=== PATIENT | male | born 2000 | race Caucasian/White ===

== ENCOUNTER 2020-07-08 09:58 | Emergency (ER) | payer OTHER ==
--- NOTE | 2020-07-08 12:13 | ED Physician Documentation ---
PD HPI SKIN - Stated complaint Stated Complaint: LUMP RT THIGH, HEAD PRESSURE - Chief complaint Chief Complaint: Wound - History obtained from History obtained from: Patient - Additional information Additional information: Patient comes emergency department with stool complaint of headache behind his eyes and infected pimple on his thigh. Patient states that for the last several days, he has as though he has "sinus pain" and that he has been noticing a dull ache behind his eyes. He denies congestion or rhinorrhea. States he has no history of chronic headaches. No head injury. Patient states he has been sleeping well and has been drinking plenty of fluids. Patient denies measured fevers but he has been having a feeling of shivering or chills on and off for the last couple of days. No cough, shortness of breath, or sore throat. No other complaints at this time regarding his headache. The patient states that he has had a pimple on his right inner thigh for the last few days and that it seems a little bigger now. He was concerned that the feeling of chills may be related to the pimple and would like them checked. He states his mom had something similar and was put on antibiotics and her chills went away. No drainage. No spreading erythema around the pimple. No other complaints at this time. Review of Systems Ten Systems: 10 systems reviewed and negative Constitutional: reports: Chills Eyes: reports: Reviewed and negative Ears: reports: Reviewed and negative Nose: reports: Sinus pressure / pain Throat: reports: Reviewed and negative Cardiac: reports: Reviewed and negative Respiratory: reports: Reviewed and negative GI: reports: Reviewed and negative : reports: Reviewed and negative Skin: reports: Lesions Musculoskeletal: reports: Reviewed and negative Neurologic: reports: Reviewed and negative Psychiatric: reports: Reviewed and negative Endocrine: reports: Reviewed and negative Immunocompromised: reports: Reviewed and negative PD PAST MEDICAL HISTORY - Past Medical History Past Medical History: No - Past Surgical History Past Surgical History: Yes HEENT: Myringotomy (tubes), Tonsil/Adenoidectomy - Present Medications Home Medications: Ambulatory Orders Medication Instructions Recorded Confirmed No Known Home Medications 07/08/20 07/08/20 - Allergies Allergies/Adverse Reactions: Allergies Allergy/AdvReac Type Severity Reaction Status Date / Time No Known Drug Allergies Allergy Verified 07/08/20 10:11 - Social History Does the pt smoke?: Yes Smoking Status: Current every day smoker Does the pt drink ETOH?: No Does the pt have substance abuse?: No - Immunizations Immunizations are current?: Yes PD ED PE NORMAL - Vitals Vital signs reviewed: Yes - General General: Alert and oriented X 3, No acute distress, Well developed/nourished - HEENT HEENT: Atraumatic, PERRL, EOMI, Moist mucous membranes, Other (No sinus tenderness) - Neck Neck: Supple, no meningeal sign - Respiratory Respiratory: No respiratory distress - Derm Derm: Normal color, Warm and dry, No rash, Other (5 mm x 7 mm pustule located the proximal portion patient's medial right thigh. No associated induration outside of the immediate pustule area drainage. No erythema spreading away from lesion.) - Extremities Extremities: No deformity - Neuro Neuro: Alert and oriented X 3 - Psych Psych: Normal mood, Normal affect Results - Vitals Vitals: Vital Signs - 24 hr /18/20 10:06 Temperature 36.8 C Heart Rate 70 Respiratory 17 Rate Blood Pressure 116/63 O2 Saturation 99 Oxygen O2 Source Room air PD MEDICAL DECISION MAKING - ED course Complexity details: considered differential, d/w patient ED course: No evidence of a bacterial infection in need of antibiotic treatment at this time. We have discussed hot-packing the pustule, and also, the usual indications for return. Departure - Departure Disposition: 01 Home, Self Care Clinical Impression: Pustule Headache Qualifiers: Headache type: unspecified Headache chronicity pattern: acute headache Intractability: not intractable Qualified Code(s): R51 - Headache Condition: Stable Instructions: ED Headache Sinus
[2020-07-08 12:31] VITALS: BP 115/54
== END 2020-07-08 13:24 | disposition home or self-care (01) ==
LOC: ED 09:58
DX: L08.9 Local infection of the skin and subcutaneous tissue, unspecified (principal); R51 Headache; F17.200 Nicotine dependence, unspecified, uncomplicated
CPT/HCPCS: 99281; 99284

== ENCOUNTER 2021-11-10 08:27 | Emergency (ER) | payer OTHER ==
[2021-11-10 08:40] VITALS: BP 133/60
[2021-11-10] MEDS ORDERED: AMOXICILLIN 250 MG CAPSULE PO STA (08:53)
--- NOTE | 2021-11-10 08:57 | ED Physician Documentation ---
History of Present Illness - Stated complaint Stated Complaint: LT EAR PX/PRESSURE - Chief complaint Chief Complaint: Heent - History obtained from History obtained from: Patient - History of Present Illness Timing: Today Pain level max: 5 Pain level now: 4 - Additonal information Additional information: 20-year-old male presents the emergency department left ear pain for the past 3 to 4 days. States feels like prior ear infections. No fevers. No chills. Nothing makes it better or worse. No sore throat. No rhinorrhea or congestion. No vomiting. No cough. Review of Systems Constitutional: denies: Fever, Chills Respiratory: denies: Cough GI: denies: Vomiting, Diarrhea Skin: denies: Rash Musculoskeletal: denies: Neck pain Neurologic: denies: Headache PD PAST MEDICAL HISTORY - Past Medical History Past Medical History: No - Past Surgical History Past Surgical History: Yes HEENT: Myringotomy (tubes), Tonsil/Adenoidectomy - Present Medications Home Medications: Ambulatory Orders Medication Instructions Recorded Confirmed Amoxicillin 500 mg PO TID #30 cap 11/10/21 - Allergies Allergies/Adverse Reactions: Allergies Allergy/AdvReac Type Severity Reaction Status Date / Time No Known Drug Allergies Allergy Verified 11/10/21 08:39 - Social History Does the pt smoke?: Yes Smoking Status: Current every day smoker Does the pt drink ETOH?: No Does the pt have substance abuse?: No - Immunizations Immunizations are current?: Yes PD ED PE NORMAL - Vitals Vital signs reviewed: Yes - General General: Alert and oriented X 3, No acute distress - HEENT HEENT: Moist mucous membranes, Pharynx benign, Other (L TM is erythematous, dull, bulging with loss of landmarks. Purulent fluid present. R TM normal) - Neck Neck: Supple, no meningeal sign - Cardiac Cardiac: RRR - Respiratory Respiratory: No respiratory distress, Clear bilaterally - Derm Derm: Warm and dry - Neuro Neuro: Alert and oriented X 3 Results - Vitals Vitals: Vital Signs - 24 hr 11/10/21 08:37 Temperature 36.5 C Heart Rate 78 Respiratory 19 Rate Blood Pressure 133/60 H O2 Saturation 100 Oxygen O2 Source Room air PD MEDICAL DECISION MAKING - ED course Complexity details: considered differential, d/w patient ED course: 20-year-old male with a left acute otitis media. I will have him follow-up with his doctor as needed for further care. Will place on antibiotics for home. Patient counseled regarding signs and symptoms for which I believe and urgent re-evaluation would be necessary. Patient with good understanding of and agree ment to plan and is comfortable going home at this time This document was made in part using voice recognition software. While efforts are made to proofread this document, sound alike and grammatical errors may occur. Departure - Departure Disposition: Home, Self Care Clinical Impression: Otitis media Qualifiers: Otitis media type: suppurative Chronicity: acute Laterality: left Recurrence: non-recurrent Spontaneous tympanic membrane rupture: without spontaneous rupture Qualified Code(s): H66.002 - Acute suppurative otitis media without spontaneous rupture of ear drum, left ear Condition: Good Instructions: ED Otitis Media Acute Adult Follow-Up: your,doctor as needed [Other] Prescriptions: Amoxicillin 500 mg PO TID #30 cap Comments: [facility] [place] Take all antibiotics until gone. Return if you worsen.
== END 2021-11-10 09:03 | disposition home or self-care (01) ==
LOC: ED 08:27
DX: H66.002 Acute suppurative otitis media without spontaneous rupture of ear drum, left ear (principal); F17.200 Nicotine dependence, unspecified, uncomplicated
CPT/HCPCS: 99282; A9270